=== PATIENT | female | born 2005 | race Asian ===

== ENCOUNTER 2024-03-19 16:30 | Outpatient (RCR) | payer MEDICAID, SELFPAY ==
--- NOTE | 2024-01-31 14:17 | HP.PTEVAL ---
Patient's Visit Information Visit Information Visit Information: MICHELLE GARNICA is a 18 year old F referred to Physical Therapy by YAEL ROD with a diagnosis of MIDLINE LOW BACK PAIN WITHOUT SCIATICA. Date of Evaluation: 01/31/24 Physical Therapist: Emily Mathur PT, Cert MDT Visit Plan Frequency: 2-3x /Week Duration: 4-6 Weeks Plan: LAND AND/OR AQUATIC THERAPY FOR PAIN RELIEF. MH OR COLD PACK NEEDED. START WITH CORE STRENGTH AND STABILITY WITH NEUTRAL SPINE. ASHLEY LE STRETCHING. POSTURE CORRECTION/STRENGTHENING. INSTRUCTION IN PROPER BODY MECHANICS AND APPROPRIATE ACTIVITY MODIFICATIONS. HEP. 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 Disability: NO Present symptoms: ASHLEY LOW BACK AND HIP PAIN. PATIENT DENIES ASHLEY LE PAIN, NUMBNESS OR TINGING OTHER THAN HIPS. ASHLEY QUAD CRAMPING. Present since: ABOUT A YEAR AGO Pain Scale: WORST 8/10, LEAST 1/10 Currently: 4/10 Is it getting better, worse or staying the same: GETTING BETTER Commenced as a result of: NO APPARENT REASON Symptoms at onset: LOW BACK PAIN Worse: SITTING, PUTTING ON PANTS, WALKING, BENDING OVER, SQUATTING Better: LAYING DOWN, IBUPROFEN Disturbed sleep: NO Previous history/Previous treatment: PHYSICAL THERAPY ([facility]) SUMMER 2022 X APPROX 10 VISITS - CORE AND HIP EX'S - NE. NO BACK SURGERY. NO CHIROPRACTIC. Treatment this episode: MARILYN 01/17/24 - LESS PAIN IN SITTING SINCE INJECTION. Coughing/sneezing/straining: POSITIVE FOR INCREASED PAIN AT TIMES. Gait: PATIENT REPORTS WALKING SOMETIMES CAUSES INCREASED BACK PAIN BUT DOESN'T LIMIT HER WALKING HOWEVER SHE HAS ANKLE PAIN THAT LIMITS HER WALKING AT TIMES. Bowel or Bladder Dysfunction: NO Accidents: NO Unexplained weight loss: NO Imaging: LUMBAR X-RAYS AND MRI PER PATIENT REPORT SHOWING HNP - CENTRAL AND R HNP [id number]. PMH/Recent major surgery: ASHLEY ANKLE PAIN - H/O SPRAINS. R ACHILLES PAIN. ASHLEY FOOT ARCH PAIN. Objective Objective: Sitting/Standing Posture: FAIR. NORMAL LORDOSIS. NO RELEVANT LATERAL SHIFT. Active Correction of posture: NE. ABLE TO CORRECT BUT DOES NOT MAINTAIN. Other Observations: INDEP GAIT AND TRANSFERS. Sensory deficit: ASHLEY LE LIGHT TOUCH SENSATION GROSSLY INTACT AND SYMMETRICAL. ROM deficit: ASHLEY LE QUAD, HS, HIP FLEX, HIP ADDUCTOR, HIP IR L>R AND CALF TIGHTNESS Motor deficit: ASHLEY LE'S GROSSLY 5/5 WITH MMT'ING. Reflexes: UNABLE TO ELICIT ASHLEY LE DTR'S Dural Signs: NEGATIVE ASHLEY LE'S. Lumbar mvmt loss: flex - NIL - NE ext - MOD - INCREASES - NW R SG - MIN - NE L SG - MIN - INCREASES - NW Core strength: FAIR - PATIENT WITH INCREASED C/O LBP AFTER TESTING. W. OTHER: PRONE LYING - BETTER. PRONE EXTENSION - MOD MVMT LOSS - ERP - NW. Palpation: NO ACUTE LOWER THORACIC, LUMBAR OR SACRAL TENDERNESS. NO ACUTE HIP TENDERNESS. ASHLEY PARASPINAL INCREASED MUSCLE TONE. Balance/Special Test Scores Oswestry Low Back Score: 10 Goals Goal 1:: DECREASE C/O BACK AND HIP PAIN BY AT LEAST 50% TO EASE ADL'S. Goal Time Frame: 4-6 Weeks Goal 2:: INCREASE PAINFREE LUMBAR ROM IN ALL EFFECTED PLANES Goal Time Frame: 4-6 Weeks Goal 3:: PATIENT WILL BE ABLE TO SIT WITHOUT LBP X AT LEAST 30 MIN TO IMPROVE SCHOOL FUNCTION. Goal Time Frame: 4-6 Weeks Goal 4:: INCREASE CORE STRENGTH TO IMPOVE CORE STABILITY WITH ADL'S. Goal Time Frame: 4-6 Weeks Goal 5:: INCREASE FLEXIBILITY OF ASHLEY LE EFFECTED MUSCULATURE TO REDUCE STRESS ON LUMBAR SPINE Goal Time Frame: 4-6 Weeks Goal 6:: INDEP HEP Rehabilitation Potential Physical Therapy Diagnosis: THIS PATIENT PRESENTS TO PHYSICAL THERAPY WITH C/O LOW BACK AND ASHLEY HIP PAIN THAT IS CHRONIC BUT A LITTLE BIT BETTER SINCE RECENT MARILYN. SHE HAS DECREASED LUMBAR EXTENSION AND ASHLEY SG ROM, CORE WEAKNESS AND ASHLEY LE STIFFNESS. Rehabilitation Potential: Good Anticipated Interventions Patient/Client Instruction: Educate patient on: Condition, Plan of Care and Risk Factors For the Purpose of:: To improve self management Therapeutic Exercise to Include: Strength training, Body mechanics, Postural training, Flexibilty training, Neuromotor development, In an aquatic setting and Dynamic Lumbar Stabilization For the Purpose of:: To decrease pain, To increase ROM, To improve muscle performance and motor function, To increase tolerance to activity/condition/position and To improve ability of physical actions for home/community/work/leisure Cryotherapy (ice pack, ice massage): Yes Thermo therapy (hot pack): Yes Text: Thank you for the opportunity to evaluate your patient. For Medicare and Medicare HMO plans, please review the plan of care and approve it. It will need to be FAXED BACK to us at [phone] for Medicare purposes. For Medicare only, by signing this I certify the plan of care. Please let me know if there are questions or concerns regarding this plan of care. Physician Signature: Date:
== END 2024-03-19 19:00 | disposition home or self-care (01) ==
LOC: PT 16:30
DX: M54.50 Low back pain, unspecified (principal)
CPT/HCPCS: 97113; 97162; 97164; 97530